=== PATIENT | male | born 1995 | race Caucasian/White ===

== ENCOUNTER 2018-04-01 08:17 | Emergency (ER) | payer BC ==
--- NOTE | 2018-04-01 08:36 | ER Report ---
History and Physical Time Seen By MD: 08:25 Hx. of Stated Complaint: PT REPORTS ABD PAIN AND VOMITING SINCE LAST NIGHT WITH A SORE STOMACH HPI/ROS CHIEF COMPLAINT: vomiting HISTORY OF PRESENT ILLNESS: Pt is IDDM who noted abd cramping last night followed by non bloody, non bilious vomiting throughout the night x 5. 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 Abd cramping is improving and mild. No diarrhea. Pt feels lightheaded. Has been monitoring sugars which were initially low normal, but now 195 per his insulin pump. No known sick contracts/travel. REVIEW OF SYSTEMS: Constitutional: No fever, no chills. Eyes: No discharge. ENT: No sore throat. Cardiovascular: No chest pain, no palpitations. Respiratory: No cough, no shortness of breath. Gastrointestinal: above Genitourinary: no dysuria Musculoskeletal: No back pain. Skin: No rashes. Neurological: No headache. Remainder of the 14 system rev: Yes Allergies: Coded Allergies: No Known Drug Allergies (Unverified , 04/01/18) Home Meds Reported Medications Insulin Aspart (NOVOLOG) 100 Unit/Ml Soln, 100 UNIT SUBQ SS 04/01/18 Reviewed Nurses Notes: Yes Constitutional Vital Sign - Last 24 Hours 04/01/18 04/01/18 04/01/18 04/01/18 08:20 08:30 09:00 09:30 Temp 98.6 Pulse 126 122 122 125 Resp 16 B/P (MAP) 115/62 103/62 (76) 97/43 (61) 92/45 (61) Pulse Ox 92 95 92 94 O2 Delivery Room Air 04/01/18 04/01/18 04/01/18 04/01/18 10:00 10:05 10:30 10:35 Pulse 123 126 124 B/P (MAP) 102/42 (62) 94/52 (66) Pulse Ox 91 91 90 04/01/18 04/01/18 04/01/18 04/01/18 11:00 11:05 11:10 11:25 Pulse 128 123 124 B/P (MAP) 92/53 (66) Pulse Ox 90 92 94 04/01/18 04/01/18 11:30 11:40 Pulse 123 B/P (MAP) 105/53 (70) Pulse Ox 95 Physical Exam General Appearance: The patient is alert, has no immediate need for airway protection and no signs of toxicity. [ ] Eyes: Pupils equal and round no pallor or injection. ENT, Mouth: Mucous membranes are moist. Respiratory: There are no retractions, lungs are clear to auscultation. Cardiovascular: tachycardic Gastrointestinal: Abdomen is soft and non tender, no masses, bowel sounds slightly hyperactive Neurological: alert, moves all ext, no focal deficits Skin: Warm and dry, no rashes. Musculoskeletal: Extremities are nontender, nonswollen and have full range of motion. DIFFERENTIAL DIAGNOSIS: After history and physical exam differential diagnosis was considered for abdominal pain including but not limited to appendicitis, cholecystitis, gastritis and urinary tract infection. Medical Decision Making Data Points Result Diagram: 04/01/18 0829 04/01/18 0829 Laboratory Hematology Test 04/01/18 08:29 Red Blood Count 5.83 M/uL (4.00-5.60) Mean Corpuscular Volume 87.6 fL (80.0-96.0) Mean Corpuscular Hemoglobin 30.8 pg (26.0-33.0) Mean Corpuscular Hemoglobin Concent 35.2 g/dL (32.0-36.0) Red Cell Distribution Width 12.6 % (11.5-14.5) Mean Platelet Volume 8.0 fL (7.2-11.1) Neutrophils (%) (Auto) 88.7 % (39.4-72.5) Lymphocytes (%) (Auto) 4.5 % (17.6-49.6) Monocytes (%) (Auto) 6.5 % (4.1-12.4) Eosinophils (%) (Auto) 0.2 % (0.4-6.7) Basophils (%) (Auto) 0.1 % (0.3-1.4) Nucleated RBC Relative Count (auto) 0.0 /100WBC Neutrophils # (Auto) 7.6 K/uL (2.0-7.4) Lymphocytes # (Auto) 0.4 K/uL (1.3-3.6) Monocytes # (Auto) 0.6 K/uL (0.3-1.0) Eosinophils # (Auto) 0.0 K/uL (0.0-0.5) Basophils # (Auto) 0.0 K/uL (0.0-0.1) Nucleated RBC Absolute Count (auto) 0.00 K/uL Sodium Level 137 mmol/L (137-145) Potassium Level 3.7 mmol/L (3.5-5.0) Chloride Level 103 mmol/L (98-107) Carbon Dioxide Level 22 mmol/L (22-30) Blood Urea Nitrogen 20 mg/dl (9-21) Creatinine 0.90 mg/dl (0.66-1.25) Glomerular Filtration Rate Calc > 60.0 Random Glucose 202 mg/dl (75-110) Calcium Level 9.3 mg/dl (8.4-10.2) Total Bilirubin 2.9 mg/dl (0.2-1.3) Aspartate Amino Transf (AST/SGOT) 19 U/L (0-35) Alanine Aminotransferase (ALT/SGPT) 25 U/L (0-56) Alkaline Phosphatase 71 U/L (0-126) Total Protein 7.5 g/dl (6.3-8.2) Albumin 4.5 g/dl (3.5-5.0) Chemistry Test 04/01/18 08:29 White Blood Count 8.6 k/uL (4.5-11.0) Red Blood Count 5.83 M/uL (4.00-5.60) Hemoglobin 18.0 g/dL (14.0-18.0) Hematocrit 51.1 % (42.0-52.0) Mean Corpuscular Volume 87.6 fL (80.0-96.0) Mean Corpuscular Hemoglobin 30.8 pg (26.0-33.0) Mean Corpuscular Hemoglobin Concent 35.2 g/dL (32.0-36.0) Red Cell Distribution Width 12.6 % (11.5-14.5) Platelet Count 186 K/uL (150-450) Mean Platelet Volume 8.0 fL (7.2-11.1) Neutrophils (%) (Auto) 88.7 % (39.4-72.5) Lymphocytes (%) (Auto) 4.5 % (17.6-49.6) Monocytes (%) (Auto) 6.5 % (4.1-12.4) Eosinophils (%) (Auto) 0.2 % (0.4-6.7) Basophils (%) (Auto) 0.1 % (0.3-1.4) Nucleated RBC Relative Count (auto) 0.0 /100WBC Neutrophils # (Auto) 7.6 K/uL (2.0-7.4) Lymphocytes # (Auto) 0.4 K/uL (1.3-3.6) Monocytes # (Auto) 0.6 K/uL (0.3-1.0) Eosinophils # (Auto) 0.0 K/uL (0.0-0.5) Basophils # (Auto) 0.0 K/uL (0.0-0.1) Nucleated RBC Absolute Count (auto) 0.00 K/uL Glomerular Filtration Rate Calc > 60.0 Calcium Level 9.3 mg/dl (8.4-10.2) Total Bilirubin 2.9 mg/dl (0.2-1.3) Aspartate Amino Transf (AST/SGOT) 19 U/L (0-35) Alanine Aminotransferase (ALT/SGPT) 25 U/L (0-56) Alkaline Phosphatase 71 U/L (0-126) Total Protein 7.5 g/dl (6.3-8.2) Albumin 4.5 g/dl (3.5-5.0) ED Course/Re-evaluation ED Course Patient is 22-year-old IDDM who presented with vomiting and abdominal cramping. Symptoms significantly improved in the ED and repeat exam shows benign abdomen, however patient remains persistently tachycardic in the 120s. This is despite 3 L of fluids and no sign of significant dehydration. He does not have dyspnea, ch est pain, or other signs or symptoms of sepsis, concerning cardiopulmonary disease. He feels significantly improved and very well and it is reasonable for discharge despite the persistent tachycardia as he appears very well and understands strict return precautions. He presents hyperglycemic that this improves throughout ED stay. There is no evidence of DKA. Of note, his bilirubin is elevated without elevation mother LFTs. This is very similar to multiple other patients we are seen with similar disease process. Decision to Disposition Date: Apr 01, 2018 Decision to Disposition Time: 11:56 Depart Departure Latest Vital Signs Vital Signs Date Time Temp Pulse Resp B/P (MAP) Pulse Ox O2 Delivery O2 Flow Rate FiO2 04/01/18 11:40 123 95 04/01/18 11:30 105/53 (70) 04/01/18 08:20 98.6 16 Room Air Impression: Primary Impression: Vomiting Additional Impressions: Tachycardia Hyperglycemia Elevated bilirubin Condition: Improved Disposition: HOME OR SELF-CARE New Scripts Ondansetron 4 Mg Odt (ONDANSETRON 4 MG ODT) 4 Mg Tab.rapdis 4 MG PO Q8H for Nausea, #10 TAB Prov: BROOKS CAMPOS MD 04/01/18 Patient Instructions: Acute Nausea and Vomiting (ED), Tachycardia (ED) Problem Qualifiers Primary Impression: Vomiting Vomiting type: unspecified Vomiting Intractability: non-intractable Nausea presence: with nausea Qualified Codes: R11.2 - Nausea with vomiting, unspecified BROOKS CAMPOS MD Apr 01, 2018 08:36
[2018-04-01] MEDS ORDERED: NS(*) 0.9% 1000 ML BAG 1,000 ML IV ONE ×3 (08:40→10:50)
[2018-04-01] MEDS ORDERED: ONDANSETRON 4 MG/2 ML VIAL IVP ONE (08:40)
[2018-04-01 08:44] LABS: PLATELET COUNT, AUTOMATED 186 K/uL (150-450)
[2018-04-01] MEDS ORDERED: NOVOLOG SUBQ (08:47)
[2018-04-01] MEDS ORDERED: KETOROLAC 15 MG/ML VIAL IVP ONE (10:10)
[2018-04-01 12:00] VITALS: BP 90/59
[2018-04-01] MEDS ORDERED: ONDA4TAB9 PO (12:00)
== END 2018-04-01 12:15 | disposition home or self-care (01) ==
LOC: ER 08:22
DX: R11.2 Nausea with vomiting, unspecified (principal); R00.0 Tachycardia, unspecified; E11.65 Type 2 diabetes mellitus with hyperglycemia; Z79.4 Long term (current) use of insulin; E80.7 Disorder of bilirubin metabolism, unspecified
CPT/HCPCS: 85025; 96361; 96374; 96375; 99284; J1885; J2405; J7030; 82040; 82247; 82310; 82374; 82435; 82565; 82947; 84075; 84132; 84155; 84295; 84450; 84460; 84520